=== PATIENT | female | born 1965 | race American Indian/Alaskan Native ===

== ENCOUNTER 2017-03-03 07:09 | Day surgery (SDC) | payer OTHER ==
[2017-03-03] MEDS ORDERED: VANCOMYCIN/NS 1 GM/250 ML 1 GM/250 ML BAG IV NR (10:00)
[2017-03-03] MEDS ORDERED: NACL 0.9% 1000 ML 1,000 ML IV SCH (10:00)
[2017-03-03] MEDS ORDERED: TRANSDERM-SCOP TD NR (10:00)
[2017-03-03] MEDS ORDERED: PEPCID PO NR (10:00)
[2017-03-03] MEDS ORDERED: XYLOCAINE MPF 2% ONE (10:04)
[2017-03-03] MEDS ORDERED: SUBLIMAZE ONE (10:04)
[2017-03-03] MEDS ORDERED: DIPRIVAN 10 MG/ML IV ONE ×2 (10:05→12:05)
--- NOTE | 2017-03-03 10:06 | Anesthesia Day of Surgery ---
Anesthesia Day of Surgery - Day of Surgery Patient Examined: Yes Patient H&P Reviewed: Yes Patient is NPO: Yes
--- NOTE | 2017-03-03 10:06 | Anesthesia Consultation ---
Anesthesia Consult and Med Hx Date of service: 03/03/17 - Airway Anesthetic Teeth Evaluation: Good ROM Head & Neck: Adequate Mental/Hyoid Distance: Adequate Mallampati Class: Class I Intubation Access Assessment: Probably Good - Pulmonary Exam CTA: Yes - Cardiac Exam Cardiac Exam: RRR - Pre-Operative Health Status ASA Pre-Surgery Classification: ASA2 Proposed Anesthetic Plan: General - Pulmonary Hx Sleep Apnea: Yes (wakes up choking) - Other Systems Hx Alcohol Use: Yes (ONCE A DAY) Hx Substance Use: No Hx Cancer: No - Additional Comments Anesthesia Medical History Comments: high cholest.
[2017-03-03] MEDS: VERSED IV PRN ×2 (10:15→11:05)
[2017-03-03] MEDS ORDERED: DECADRON ONE (11:48)
[2017-03-03] MEDS ORDERED: NACL 0.9% IR ONE (11:55)
[2017-03-03] MEDS ORDERED: APRESOLINE ONE (12:15)
[2017-03-03] MEDS ORDERED: BREVIBLOC IV ONE (12:16)
[2017-03-03] MEDS ORDERED: ZOFRAN ONE ×2 (12:28→17:53)
[2017-03-03] MEDS ORDERED: DILAUDID ONE (12:30)
[2017-03-03] MEDS ORDERED: LACTATED RINGERS 1,000 ML ONE (13:05)
--- NOTE | 2017-03-03 14:40 | Post Anesthesia Evaluation ---
- Post Anesthesia Evaluation Patient Participated: Yes Airway Patent: Yes Stable Respiratory Function: Yes Temp > 96.8F: Yes Pain Manageable: Yes Adequeate Hydration: Yes Anesthesia Complications: No Block Receding Appropriately: Not Applicable
[2017-03-03] MEDS: DILAUDID IV PRN ×2 (15:13→15:30)
[2017-03-03] MEDS ORDERED: ZOFRAN IV PRN (15:30)
--- NOTE | 2017-03-03 16:18 | Discharge Summary ---
Short Stay Discharge Plan Activity: no restrictions Weight Bearing Status: Full Weight Bearing Diet: regular Wound: remove dressing (72hrs) Follow up with: PRIMARY CAREMD [Primary Care Provider] - 6 Weeks WORK,AUBREY Ospina JR, MD [Staff Physician] - 7 Days
--- NOTE | 2017-03-03 16:19 | Short Stay Summary ---
Short Stay Documentation Date of service: 03/03/17 - Allergies and Medications Current Medications: Allergies Penicillins Allergy (Verified 02/27/17 10:33) Anaphylaxis Sulfa (Sulfonamide Antibiotics) Allergy (Verified 02/27/17 10:33) Rash Home Medications Medication Instructions Recorded Confirmed Last Taken Type Simvastatin [Zocor TAB] 20 mg PO QHS 02/27/17 03/03/17 03/02/17 History Active Medications Famotidine (Pepcid) 20 mg PO PREOP NR Stop: 03/03/17 18:00 Last Admin: 03/03/17 10:07 Dose: 20 mg Hydromorphone HCl (Dilaudid) 0.5 mg IV Q10MIN PRN PRN Reason: Pain , Severe (7-10) Stop: 03/03/17 18:00 Last Admin: 03/03/17 15:30 Dose: 0.5 mg Sodium Chloride (Nacl 0.9% 1000 Ml) 1,000 mls @ 100 mls/hr IV DIRECT [place] Last Admin: 03/03/17 10:09 Dose: 100 mls/hr Midazolam HCl (Versed) 2 mg IV PREOP PRN PRN Reason: Anxiety Stop: 03/03/17 18:00 Last Admin: 03/03/17 11:05 Dose: 2 mg Scopolamine (Transderm-Scop) 1 each TD PREOP NR Stop: 03/03/17 18:00 Last Admin: 03/03/17 10:15 Dose: 1 each - Brief post op/procedure progress note Date of procedure: 03/03/17 Pre-op diagnosis: macromastia Post-op diagnosis: same Procedure: Bilateral Breast Reduction Anesthesia: GETA Surgeon: AUBREY NIELSEN JR Estimated blood loss: 50-100ml Specimen disposition: to lab Condition: stable - Disposition Condition at discharge: Good Disposition: DC-01 TO HOME OR SELFCARE Short Stay Discharge Plan Follow up with: AUBREY NIELSEN JR, MD [Staff Physician] - 7 Days PRIMARY CARE, [Primary Care Provider] - 6 Weeks
[2017-03-03 18:05] VITALS: BP 112/51
--- NOTE | 2017-03-03 19:43 | Operative Report ---
PREOPERATIVE DIAGNOSIS: Macromastia. POSTOPERATIVE DIAGNOSIS: Macromastia. PROCEDURE: Bilateral reduction mammoplasty. SURGEON: Enrique Villa MD CRAFT DEMONSTRATOR: Oswaldo Rojas CSA. DESCRIPTION OF PROCEDURE: The patient was brought to the operating room and placed on the table in supine position. Following administration of general anesthesia, bilateral breasts were prepped with Betadine solution and draped in the usual sterile manner. A #10 blade scalpel was used to make a circumareolar skin incision followed by de-epithelization of inferior dermal pedicle. Modified Sears pattern skin markings were incised with scalpel, deepened through subcutaneous fat and breast tissue using electrocautery. Skin flaps were raised in standard manner as was fashioning of an inferior central mound pedicle. Breasts tissue was resected and sent to pathology as specimen. Hemostasis controlled using electrocautery. Closure was performed over 10-mm Scott drain using interrupted and running subcuticular 2-0 Monocryl sutures. Mastisol, Steri-Strips, and sterile dressings applied. The patient tolerated the procedure well and returned to recovery room in stable condition. JOB# [id number] FTW/NTS
== END 2017-03-03 18:35 | disposition home or self-care (01) ==
LOC: OR 07:09
PROVIDERS: ATTEND Plastic Surgery
DX: E78.00 Pure hypercholesterolemia, unspecified (principal); N62 Hypertrophy of breast; Z72.89 Other problems related to lifestyle; Z82.49 Family history of ischemic heart disease and other diseases of the circulatory system
CPT/HCPCS: 19318; 81025; 88305; J0360; J1100; J1170; J2250; J2405; J2704; J3010; J3370; J7030; J7120